=== PATIENT | male | born 1970 | race Caucasian/White ===

== ENCOUNTER → 2018-11-18 | Outpatient (CLI) | payer BC ==
[~2018-11-18] MED LIST: REGADENOSON 0.4 MG/5 ML DISP.SYRIN. IV ONE
--- NOTE | 2018-11-18 15:30 | PCVCIMAG ---
APPROVED REPORT Imaging Protocol: Rest Tc-99m/Stress Tc-99m 1 day Study performed: 11/18/2018 08:57:48 Indication: Abn EKG, Pre Op Patient Location: Out-Patient Stress Nurse: Kate Dennis RN, LISETTE [place] Tech:Abimael SosaTELMA Ht: 5 ft 6 in Wt: 168 lbs BSA: 1.86 m2 HR: 63 bpm BP: 141/92 mmHg BMI: 27.1 Rhythm: Sinus Rhythm, Abnormal T wave Medical History Medical History: Age, Hyperlipidemia, HTN, Former Smoker Medications: Atorvastatin, Allergies: No known drug allergies Pretest Chest Pain Characteristics: No chest pain Exercise History: Physically active Resting Data Rest SPECT myocardial perfusion imaging was performed in supine position 45 minutes following the intravenous injection of 11.6 mCi of Tc-99m Sestamibi. Time of rest injection: 829 Date: 11/18/2018 Administration Route: IV Administration Site: Right Arm Pharmacologic Stress Pharmacologic stress test was performed by injecting Regadenoson 0.4 mg IV push over 10-15 seconds immediately followed by the intravenous injection of 36 mCi of Tc-99m Sestamibi. Time of stress injection: 944 Date: 11/18/2018 Administration Route: IV Administration Site: Right Arm Gated Stress SPECT was performed 45 minutes after stress injection. The images were gated to evaluate regional wall motion and calculate left ventricular ejection fraction. Stress Test Details Stress Test: Pharmacologic stress testing performed using 0.4 mg of regadenoson per 5 mL given IV over 10 seconds. Reason for pharmacologic stress test: Neck pain. HRMax Heart Rate (APMHR): 174 bpm Resting HR: 63 bpmTarget HR (85% APMHR): 147 bpm Max HR Achieved: 113 bpm % of APMHR: 64 Recovery HR: 92 bpm BP Resting BP: 141/92 mmHg Max BP: 154/92 mmHg Recovery BP: 152/95 mmHg ECG Resting ECG: Sinus Rhythm, Abnormal T Wave Stress ECG: Sinus Tachycardia, Abnormal T Wave Arrhythmia: None Recovery ECG: Sinus Rhythm, Abnormal T Wave Clinical Reason for Termination: Completed protocol Stress Symptoms: Dyspnea, Chest pressure Exercise duration: min 55 sec Symptoms resolved with caffeine. Stress ECG Conclusion Clinical: Non-ischemic Study Quality Study: Good Study Data Post stress, the left ventricular ejection was 75%.. SSS: 0 SRS: 0 SDS: 0 TID = 1.02. Perfusion No evidence of stress induced ischemia or prior myocardial infarction. Wall Motion Normal left ventricular size and function with no regional wall motion abnormalities. Nuclear Conclusion No evidence of stress induced ischemia or prior myocardial infarction. Normal left ventricular size and function with no regional wall motion abnormalities. Post stress, the left ventricular ejection was 75%. No prior study available for comparison. Interpreted by: Peter Brady MD Electronically Approved: 11/18/2018 15:16:06 <Conclusion> Clinical: Non-ischemic
== END | disposition home or self-care (01) ==
LOC: PCVCIMAG 08:20
PROVIDERS: ATTEND Internal Medicine Cardiovascular Disease
DX: E78.5 Hyperlipidemia, unspecified (principal); R94.31 Abnormal electrocardiogram [ECG] [EKG]; Z87.891 Personal history of nicotine dependence
CPT/HCPCS: 78452; 93017; A9500; J2785